=== PATIENT | male | born 1940 | race Caucasian/White ===

== ENCOUNTER 2019-05-30 04:45 | Inpatient (IN) ==
--- NOTE | 2019-05-15 23:15 | PAT Medication Instructions ---
Medication Instructions Date of Service May 15, 2019 Home Medications allopurinol 300 mg PO QAM furosemide 20 mg PO QAM lisinopril 2.5 mg PO QAM omeprazole 20 mg PO BID red yeast rice 600 mg PO QAM STOP taking 2 weeks before surgery If surgery is within 2 weeks, stop taking as soon as possible. red yeast rice 600 mg PO QAM DO NOT take the morning of surgery furosemide 20 mg PO QAM lisinopril 2.5 mg PO QAM Take morning of surgery With a small sip of water, OTHERWISE NOTHING TO EAT OR DRINK AFTER MIDNIGHT: allopurinol 300 mg PO QAM omeprazole 20 mg PO BID Take evening before surgery omeprazole 20 mg PO BID Other Notes If you have any questions please call us at [phone] or [phone] or [phone] or [phone]
--- NOTE | 2019-05-16 13:42 | Anesthesiology Consultation ---
Date of Service May 16, 2019 Assessment & Plan (1) Encounter for pre-operative examination: Mild , most recent echo 2013. Will attempt to update prior to surgery; if unable to do so, patient will need general anesthesia. Surgeon's office made aware. Patient with several cardiac issues, noncompliant with medications. Will need cardiac clearance prior to surgery. Surgeon's office made aware. Chart Review Chart Review: Pending: Refer to Additional Notes / Consult section and Patient seen in Pre Admission Testing Teaching & Discussion Instructed NPO after midnight before surgery, except medications with 15 cc of water. Medication instructions provided according to the PAT guidelines. History Surgery Operation Date: 05/21/19 08:40 Proposed Procedures p Left Knee Total Knee Arthroplasty - Pito Perez MD Height/Weight Height: 5 ft 10 in Weight: 80.5 kg Allergies Allergy/AdvReac Type Severity Reaction Status Date / Time simvastatin AdvReac Mild JOINT Verified 05/15/19 14:47 STIFFNESS Medications Home Medications Medication Instructions Recorded Confirmed Last Taken allopurinol 300 mg PO QAM 05/15/19 05/15/19 Unknown furosemide 20 mg PO QAM 05/15/19 05/15/19 Unknown lisinopril 2.5 mg PO QAM 05/15/19 05/15/19 Unknown omeprazole 20 mg PO BID 05/15/19 05/15/19 Unknown red yeast rice 600 mg PO QAM 05/15/19 05/15/19 Unknown Past Medical History Medical History Afib Longstanding history. Previously on Coumadin but self-discontinued and has refused any further anticoagulation. CAD (coronary artery disease) Stent to RCA 2005; pt had chest pain and inconclusive stress test --> cath. No longer follows with cardiology, refuses statin and ASA. CKD (chronic kidney disease) stage 3, GFR 30-59 ml/min GERD (gastroesophageal reflux disease) Gout History of DVT (deep vein thrombosis) 1970s Hyperlipidemia Hypertension Osteoarthritis Exercise / Class Metabolic Activity 1 > 8 Run/Swim/Ski/Tennis (Does 1 FOS a few times per week, teaches martial arts, swims at [employer] 50-60 laps) Past Family History Family History Mother FHx: colon cancer Past Surgical History Surgical History History of cardiac cath Stent to RCA 2005. History of cataract surgery bilateral History of colonoscopy History of esophagogastroduodenoscopy (EGD) History of heart artery stent RCA (10/30/2005) [facility] History of tonsillectomy History of umbilical hernia repair Hx of vasectomy S/P left knee arthroscopy Past Anesthesia History No Hx of Anesthesia Complications and No Family Hx of Anesthesia Complications History of PONV No Hx of PONV and No Hx of Motion Sickness Social History Smoking Status: Former smoker tobacco type: cigarettes Smoking cigarettes per day: 1ppd + x 23 years Do You Dip or Chew Tobacco: No Smoking End Date: 1971 Hx Alcohol Use: Yes Alcohol type: beer alcohol intake frequency: a few times a week Hx Substance Use: No substance use type: does not use Review of Systems Pt denies any recent chest pain, shortness of breath, palpitations, cough, fever or URI. Physical Exam Vital Signs BP: 138/79 P: 77bpm SPO2: 97% RA T: 97.9 F R: 16 ENMT Mouth: + dentures and + edentulous Thyromental Distance: < 3.5 Finger Breadths (3) Mallampati Class: II Neck normal visual inspection; neck extension not limited Respiratory normal respiratory effort Auscultation: lungs clear to auscultation bilaterally Cardiovascular Rate/Rhythm: regular rate; + abnormal rhythm (irreg irreg) Heart Sounds: no murmur Vessels: no carotid bruit Extremities: no edema Testing Echocardiogram Date: 11/19/13 EF: 57% Moderate concentric LVH. LV wall motion is normal. RV systolic function is normal. Left atrium is moderately enlarged. Left atrial pressure is elevated by Doppler exam. Aortic valve is mildly calcified with mild aortic valve stenosis. BELLE 1.4 cm. Aortic valve mean gradient 8.4 mmHg. Mild mitral regurgitation and mild tricuspid regurgitation are present. Estimated RVSP is 25 mmHg. Stress Test Date: 06/22/17 Type: nuclear Resting EF: 43% This was a walking pharmaceutical study. Lexiscan nuclear cardiac stress test negative for ischemia. Small to medium size defect of mild to moderate intensity present involving apex and apical lateral and mid inferolateral segments. The defect is probably an attenuation artifact. TID normal at 1.05. Left ventricle is mildly diffusely hypokinetic. LVEF is 43% and post Lexiscan study.
--- NOTE | 2019-05-16 14:29 | XRay Report ---
XR chest Pre-admission PA/Lat CLINICAL HISTORY: Preoperative evaluation. COMPARISON STUDY: No previous studies for comparison. FINDINGS: Lung volumes are normal. Lungs are clear. There is no pneumothorax or pleural effusion. Car diac size is normal. Mediastinal contours are normal. There is no evidence for pulmonary edema. A nod ular density along the left heart border likely reflects a nipple shadow. IMPRESSION: No acute cardiopulmonary findings. ACT 112: Negative or not required by law. Electronically signed by: Dean Valdez M.D. 05/16/2019 2:28 PM
[2019-05-16 15:54] LABS: Appearance Urine Clear (Clear); Bilirubin Urine Negative (Negative); Blood Urine Negative (Negative); Color Urine Yellow; Glucose Urine UA Negative (Negative); Ketones Urine Negative (Negative); Leukocyte Esterase Urine Negative (Negative); Nitrite Urine Negative (Negative); Protein Urine Negative (Negative); Specific Gravity Urine 1.018 (1.000-1.030); Urobilinogen Urine Negative (Negative); pH Urine 5.5 (4.5-7.5)
[2019-05-16 15:56] LABS: Basophils # (auto) 0.01 K/uL (0-0.2); Basophils % (auto) 0.1 %; Eosinophils # (auto) 0.03 K/uL (0-0.5); Eosinophils % (auto) 0.4 %; Hemoglobin 14.1 g/dL (14.0-18.0); Immature Granulocytes # (auto) 0.04 K/uL (0.00-0.02); Immature Granulocytes % (auto) 0.6 %; Lymphocytes % (auto) 37.1 %; Mean Corpuscular Hemoglobin 31.1 pg (25-34); Mean Corpuscular Hgb Conc 32.8 g/dL (32-36); Mean Corpuscular Volume 94.9 fL (80-100); Mean Platelet Volume 12.4 fL (7.4-10.4); Monocytes % (auto) 12.9 %; Neutrophils # (auto) 3.42 K/uL (1.4-6.5); Neutrophils % (auto) 48.9 %; Platelet Count 209 K/uL (130-400); RDW Standard Deviation 51.6 fL (36.4-46.3); Red Blood Count 4.53 M/uL (4.7-6.1)
[2019-05-16 15:58] LABS: Albumin Level 3.7 gm/dl (3.4-5.0); Calcium 9.2 mg/dl (8.5-10.1); Creatinine Clr Calc Pharmacy 57.9 ml/min; Est GFR (African American) 77.3; Est GFR (Non-African American) 66.7; Potassium 4.1 mmol/L (3.5-5.1)
[2019-05-16 16:04] LABS: Partial Thromboplastin Ratio 0.9; Partial Thromboplastin Time 25.5 Seconds (21.0-31.0); Prothrombin Time 10.4 Seconds (9.0-12.0)
[2019-05-17 06:10] LABS: Estimated Average Glucose 111 mg/dl; Hemoglobin A1C 5.5 % (4.5-5.6)
--- NOTE | 2019-05-17 07:48 | Electrocardiogram Report ---
Test Reason : Blood Pressure : / mmHG Vent. Rate : 079 BPM Atrial Rate : 086 BPM P-R Int : 000 ms QRS Dur : 134 ms QT Int : 426 ms P-R-T Axes : 000 -30 024 degrees QTc Int : 488 ms probably Atrial fibrillation Left axis deviation Right bundle branch block Abnormal ECG No previous ECGs available Confirmed by Wilberto Johnson ([id number]) on 05/17/2019 7:48:11 AM Referred By: Pito Perez Confirmed By:Michoacano Johnson
--- NOTE | 2019-05-29 17:56 | History and Physical Report ---
DATE OF ADMISSION: 05/30/2019 CHIEF COMPLAINT: Chronic left knee pain. HISTORY OF PRESENT ILLNESS: This is an 79-year-old male patient of Dr. Perez'ginny complaining of chronic left knee pain, longstanding, now progressively getting worse. The patient has failed conservative treatment including intra-articular injections, anti-inflammatories and the use of a brace. The patient has increased pain with weightbearing activities and his pain does interfere with his activities of daily living. The patient has been diagnosed with end-stage osteoarthritis per clinical and radiographic exams and wishes to proceed with a left total knee arthroplasty. PAST MEDICAL HISTORY: Coronary artery disease status post heart stent placement in 2004, osteoarthritis, acid reflux, BPH. SOCIAL HISTORY: Nonsmoker. He is a social drinker. FAMILY HISTORY: Noncontributory. REVIEW OF SYSTEMS: Chronic left knee pain, otherwise denies any shortness of breath, chest pain, nausea, vomiting or any other joint complaints. PAST SURGICAL HISTORY: Heart stent x2, tonsillectomy, hernia repair and left knee arthroscopy. MEDICATIONS: Omeprazole 20 mg daily, aspirin 325 mg daily, Lasix 20 mg daily, Lisinopril 2.5 mg daily, allopurinol 300 mg daily, red yeast rice 600 mg daily. ALLERGIES: SIMVASTATIN. PHYSICAL EXAMINATION: GENERAL: Well-developed, well-nourished 79-year-old male in no acute distress. He is alert and oriented x3 and pleasant. HEENT: Normocephalic, atraumatic. Extraocular motions are intact. Pupils are equal and reactive to light. HEART: Irregular rate and rhythm with possible atrial fibrillation. He will be worked up at the hospital preoperatively. LUNGS: Clear. ABDOMEN: Soft, nontender, bowel sounds present. EXTREMITIES: Left knee limited range of motion of 0-120. He has a varus deformity with medial joint line tenderness. He has crepitation and pain with passive range of motion, 5/5 strength. Neurologically and neurovascularly he is intact in his left lower extremity. DIAGNOSES: Left knee end-stage osteoarthritis, coronary artery disease status post stent placement in 2004, osteoarthritis, acid reflux, and benign prostatic hypertrophy. PLAN: The patient was advised of his diagnosis. Indications, risks, benefits, postop course have all been reviewed. The patient wished to proceed with a left total knee arthroplasty. Necessary consent forms, preoperative testing and clearances will be obtained.
[2019-05-30] MEDS ORDERED: dexAMETHasone 4 MG TAB PO SCH (06:00)
[2019-05-30] MEDS ORDERED: METOCLOPRAMIDE HCL 10 MG TABLET PO SCH (06:00)
[2019-05-30] MEDS ORDERED: CEFAZOLIN 2000MG 2,000 MG/15 ML SYR IV SCH (06:00)
[2019-05-30] MEDS ORDERED: FAMOTIDINE 20 MG TAB PO SCH (06:00)
[2019-05-30] MEDS ORDERED: ROPIVACAINE 0.5% HCL/PF 150 MG, BUPIVACAINE 0.5% MPF 30 ML, EPINEPHrine 30MG/30ML (OR U... INSTIL SCH (06:00)
[2019-05-30] MEDS ORDERED: LR 15ML/HR IV SCH (06:00)
[2019-05-30] MEDS ORDERED: GABAPENTIN 300 MG CAP PO SCH (06:00)
[2019-05-30] MEDS ORDERED: CeleBREX 200 MG CAP PO SCH (06:00)
[2019-05-30] MEDS ORDERED: ACETAMINOPHEN 500 MG TAB PO SCH (06:00)
[2019-05-30] MEDS ORDERED: ONDANSETRON INJ 2 MG/ML 2 ML VIAL ONE (06:22)
[2019-05-30] MEDS ORDERED: MIDAZOLAM HCL 1 MG/ML 2ML VIAL ONE (06:22)
[2019-05-30] MEDS ORDERED: DEXAMETHASONE SOD INJ 4 MG/ML VIAL ONE (06:22)
[2019-05-30] MEDS ORDERED: KETAMINE HCL INJ 50 MG/ML 10 ML VIAL ONE (06:22)
[2019-05-30] MEDS ORDERED: PROPOFOL IV EMULSION 10 MG/ML 20 ML VIAL IV ONE (06:22)
[2019-05-30] MEDS ORDERED: LIDOCAINE HCL 2% 2 ML VIAL/AMP(20MG/ML) INFIL ONE (06:22)
[2019-05-30] MEDS ORDERED: GLYCOPYRROLATE 0.2 MG/ML VIAL ONE (06:22)
[2019-05-30] MEDS ORDERED: EPINEPHrine INJ 1 MG/ML AMP ONE (06:24)
[2019-05-30] MEDS ORDERED: ROPIVACAINE 0.5% 5 MG/ML 30 ML VIAL ONE (06:24)
[2019-05-30] MEDS ORDERED: BUPIVACAINE 0.5 % 5 MG/1 ML PF 10ML VIAL ONE (06:24)
[2019-05-30] MEDS ORDERED: BACITRACIN INJ 50,000 UNIT VIAL ONE (07:13)
[2019-05-30] MEDS ORDERED: ORTHO JOINT ANESTHETIC ONE (07:13)
--- NOTE | 2019-05-30 07:14 | History & Physical Bridge Note ---
Date of Service May 30, 2019 History & Physical Bridge Note I have examined the patient, reviewed the History & Physical and in the interval since the performance of the History & Physical I have noted the following changes of clinical significance: no changes noted
[2019-05-30] MEDS ORDERED: ATROPINE SULFATE 0.1 MG/ML 10ML SYR IV PRN (07:31)
[2019-05-30] MEDS ORDERED: ePHEDrine sulfate 50 MG/ML AMP IV PRN (07:31)
[2019-05-30] MEDS ORDERED: fentaNYL citrate 100 MCG/2 ML VIAL IV PRN (07:31)
[2019-05-30] MEDS ORDERED: LABETALOL HCL IV 5 MG/ML 20ML IV PRN (07:31)
[2019-05-30] MEDS ORDERED: PHENYLEPHRINE 100MCG/ML 5ML SYR IV PRN (07:31)
[2019-05-30] MEDS ORDERED: ONDANSETRON INJ 2 MG/ML 2 ML VIAL IV PRN ×2 (07:31→10:40)
--- NOTE | 2019-05-30 09:15 | Operative Report ---
Post Operative Report Pre & Post Diagnosis Operation Date: 05/21/19 08:40 <No data on this case meets the specified criteria> Operation Date: 05/30/19 07:15 Pre-Op Diagnosis: Osteoarthritis Left Knee Post-Op Diagnosis: Osteoarthritis Left Knee I identified the patient and participated in the time-out.: Yes Procedure Operation Date: 05/21/19 08:40 <No data on this case meets the specified criteria> Operation Date: 05/30/19 07:15 Actual Procedures p Left Total Knee Arthroplasty(Left) - Pito Perez MD Surgeon Pito Perez MD Data Center Architect Aaron CONNELL Estimated Blood Loss 5 Findings Consistent with Post-Op Diagnosis Specimens Bone cuts Drains 2 Hemovac Anesthesia Type MAC Spinal Regional Complications none Disposition Accompanied Patient To Recovery: No Disposition: Recovery Room Indications 79-year-old male with progressive osteoarthritis in his left knee [id number] the lateral compartment with mild valgus alignment to his knee and mild to moderate patellofemoral OA Description of Procedure Patient taken to the operating room placed supine on the operating table and anesthetized under spinal MAC regional anesthesia. Exam under anesthesia demonstrated good range of motion mild valgus alignment to the knee some mild MCL laxity. A pneumatic tourniquet was placed about the thigh of the left lower extremity. The left lower extremity was prepped and draped in usual fashion. Leg was elevated exsanguinated with an Esmarch bandage and the pneumatic was raised to 300 mm mercury. An anterior incision was made across the left knee. The skin was incised longitudinally subcutaneous flaps were elevated and an incision was made through the medial retinaculum extending up into the mid third of the quadriceps tendon and extended down to the medial tibial tubercle. Intra-articular findings demonstrated primarily lateral compartment OA with posterior lateral bone loss and some hypoplastic lateral femoral condyle. Chronic degenerative lateral meniscus tear. Intact cruciate ligaments. Mild patellofemoral OA only normal medial compartment. The knee was exposed by excising the infrapatellar fat pad, excising the meniscal remnants and anterior cruciate ligament. Any inflamed synovial tissue was resected. The fat pad over the anterior femur was resected for placement of the component in that area. The lateral synovial bands were release. Appropriate releases were performed to balance ligaments. This required some release of the upper IT band and subperiosteal lateral posterior lateral release and no releases medially. The femur was exposed. The intramedullary guide was placed into the knee and the distal cut was made with a standard cut at 6 degree valgus. Sizing guide was placed and the drill holes were placed in approximately 3 degrees of external rotation to match the intercondylar axis. The size 8 ,4-in-1 cutting block was placed. The anterior and posterior chamfer cuts were made. The knee was extended and a subperiosteal peel lateral release was performed around the patella. The patella width was measured and width was reproduced using freehand cut technique. The 35 x 9 millimeter symmetrical patella was used. 3 drill holes are made for the pegs. The tibia was exposed. An external tibial cutting guide was adjusted to make a perpendicular cut to the long axis of the tibia matching the posterior slope. Cutting guide was placed and the proximal cut was made with the oscillating saw. All osteophytes were resected. The lamina ornamental bronze worker was used to assess ligamentous balance and the ligaments were balanced in extension and flexion. The tibia was reexposed and measured for a size F tibial component. This was externally rotated in line with the tibial tubercle and the fixation pins were drilled. The proximal tibia was fashioned with the drill and punch. The size 8 CR femoral trial was inserted. The trial MC inserts were used. The 11 mm insert gave balanced ligaments through full range of motion. The patella tracked centrally. the trials were removed. The ortho mix anesthetic cocktail was injected per protocol. The knee was then copiously irrigated with pulsatile lavage antibiotic solution with bacitracin. The final components were cemented with Simplex cement. The final components were [employer] persona left CR size 8 femoral component, F tibial component, 11 mm MC polyethylene tibial insert, 35 x 9 patella. While the cement cured with the knee in full extension the Betadine soak was used per protocol. After the cement cured, the knee joint was copiously irrigated with antibiotic solution with bacitracin. 2 drains were brought out laterally and connected to a Hemovac. The quadriceps tendon and medial retinaculum were closed with interrupted [id number] #1 Vicryl sutures. The knee was taken through a full range of motion and repair was secure. The subcutaneous tissues were closed with 2-0 Vicryl sutures and skin was closed with cachorro. Sterile dressings were applied and the patient tolerated the procedure well. Aaron CONNELL my physician lead recreation assistant, assisted in soft tissue retraction instrument management leg positioning the closure and will participate in the postoperative care of the patient. I attest to the content of the Intraoperative Record and any orders documented therein. Any exceptions are noted below.
--- NOTE | 2019-05-30 10:02 | XRay Report ---
TWO VIEWS LEFT KNEE CLINICAL HISTORY: Postoperative examination. FINDINGS: AP and crosstable lateral portable views of the left knee are obtained. A left knee arthrop lasty is in near anatomic alignment. There has been undersurface remodeling of the patella. No acute fracture is seen. There are expected postoperative changes around the knee including skin clips, a medina rgical drain, soft tissue edema, and subcutaneous gas. IMPRESSION: Expected postoperative changes status post left knee arthroplasty. No acute fracture is s een. ACT 112: Negative or not required by law. Electronically signed by: Jacinto Mackenzie M.D. 05/30/2019 10:01 AM
--- NOTE | 2019-05-30 10:15 | Anesthesiology Progress Note ---
Date of Service May 30, 2019 Anesthesia Post Procedure Vital Signs Vital Signs: Temp Pulse Pulse Resp BP BP Pulse Ox 05/30/19 10:05 36.9 C 69 15 108/62 97 05/30/19 09:55 67 15 93/63 L 98 05/30/19 09:45 78 14 96/59 L 100 05/30/19 09:35 78 17 104/62 97 05/30/19 09:28 36.6 C 82 12 73/47 L 73/47 L 96 05/30/19 05:27 36.8 C 83 18 160/95 H 97 Transfer of Care Handoff Completed per policy Notes Mental Status: alert / awake / arousable Patient Amnestic to Procedure: Yes Nausea / Vomiting: adequately controlled Pain: adequately controlled Airway Patency, RR, SpO2: stable & adequate BP & HR: stable & adequate Hydration State: stable & adequate Anesthetic Complications: no major complications apparent and Pt Satisfied with anesthetic care
[2019-05-30] MEDS: SODIUM CHLORIDE 0.9% 1000ML 1,000 ML IV SCH ×2 (10:30→20:04)
[2019-05-30] MEDS ORDERED: NALOXONE HCL 0.4 MG/1 ML VIAL/CARP IV PRN (10:40)
[2019-05-30] MEDS ORDERED: OXYCODONE HCL IR 5 MG TAB (IMMEDIATE RELEASE) PO PRN (10:40)
[2019-05-30] MEDS ORDERED: HYDROmorphone INJ 0.5 MG/0.5 ML SYR IV PRN (10:40)
[2019-05-30] MEDS ORDERED: bisacodyL 10 MG SUPP PR PRN (10:40)
[2019-05-30] MEDS ORDERED: MAGNESIUM HYDROXIDE SUSP 30 ML UDC PO PRN (10:40)
[2019-05-30] MEDS ORDERED: PHENYLEPHRINE 100MCG/ML 5ML SYR ONE (10:43)
--- NOTE | 2019-05-30 10:56 | Anesthesiology Progress Note ---
Date of Service May 30, 2019 Anesthesia Post Procedure Vital Signs Vital Signs: Temp Pulse Pulse Pulse Resp BP BP 05/30/19 10:30 36.4 C L 74 16 102/66 05/30/19 10:15 36.9 C 69 16 94/62 L 05/30/19 10:05 36.9 C 69 15 108/62 05/30/19 09:55 67 15 93/63 L 05/30/19 09:45 78 14 96/59 L 05/30/19 09:35 78 17 104/62 05/30/19 09:28 36.6 C 82 12 73/47 L 73/47 L 05/30/19 05:27 36.8 C 83 18 160/95 H Pulse Ox 05/30/19 10:30 98 05/30/19 10:15 99 05/30/19 10:05 97 05/30/19 09:55 98 05/30/19 09:45 100 05/30/19 09:35 97 05/30/19 09:28 96 05/30/19 05:27 97 Transfer of Care Handoff Completed per policy Notes Mental Status: alert / awake / arousable Patient Amnestic to Procedure: Yes Nausea / Vomiting: adequately controlled Pain: adequately controlled Airway Patency, RR, SpO2: stable & adequate BP & HR: stable & adequate Hydration State: stable & adequate Neuraxial Anesthesia: was administered and sensory block is resolving Anesthetic Complications: no major complications apparent and Pt Satisfied with anesthetic care
--- NOTE | 2019-05-30 11:49 | Consultation ---
Date of Consultation May 30, 2019 Assessment & Plan (1) S/P total knee arthroplasty: Post op day# 0 S/P L TKA by Dr Perez EBL #5ml Post op doing well -pain management per ortho -wound management per ortho -PT/OT as appropriate -DVT prophylaxis per ortho -incentive spirometry -monitor H&H for acute blood loss anemia; pre-op Hgb: 14 (2) Chronic atrial fibrillation: Chronic A-fib. Prior use Coumadin. Dr Millan cardiology recommends starti ng Eliquis after surgery Rate controlled -Eliquis to start tomorrow per ortho -Not on rate control medication (3) CAD (coronary artery disease): S/P Stent in 2005 -Not on aspirin, statin as pt refuses (4) Hypertension: Stable -Hold lisinopril, furosemide and reassess tomorrow morning (5) CKD (chronic kidney disease) stage 3, GFR 30-59 ml/min: Pre-op Cr: 1.0 with GFR: 66 -Monitor renal functions -Avoid nephrotoxic agents when possible (6) GERD (gastroesophageal reflux disease): -Continue PPI (7) Gout: -Continue allopurinol DVT Prophylaxis -SCDs per ortho Disposition per primary service Follows with Dr Hernández for routine care Pt was seen and care coordinated with Dr Rodríguez. See addendum Pt will be followed by Dr Mendez starting 05/31/19 Thank you for this consultation. We will follow the patient with you during their hospital stay. You can reach a member of the [facility] Hospitalist Team 04/12 via pager @ [phone]. Supervising Physician Co-Signing Physician Notes Attending addendum: The patient was seen and examined in medical floor He is a status post left total knee arthroplasty, POD #0 He denies any significant symptoms Denies any chest pain, palpitation, shortness of breath, abdomen pain, nausea and/or vomiting. On examination Lying in bed comfortably Hemodynamically stable Chest-clear to auscultate bilaterally Heart-S1-S2, regular Abdomen-benign Extremities-negative His labs, imaging studies, and review of his studies reviewed Has chronic atrial fibrillation, CAD status post coronary stenting 2005 , hypertension and CKD Remained stable medically Agree with assessment and plan as outlined above by JASSI Salazar Dr History of Present Illness Requesting Physician: Dr Perez Reason for Consultation: Post op medical management Attending Physician: Pito Perez MD History of Present Illness Pt is 79 y/o M with PMH CAD s/p stents, chronic A- fib, HTN, dyslipidemia, CKD III, PVD, GERD, gout seen in medical consultation s/p L TKA today by Dr Perez. Post op pt reports feeling well. Still with some leg numbness, able to move bilateral feet. Last BM on 05/29/19. Denies fever/chills, diaphoresis, N/V/D, HUGHES, dizziness, syncope, vision changes, neck pain, CP, SOB, orthopnea, palpitations, cough, sore throat, choking, otalgia, rhinorrhea, abdominal pain, paresthesias, extremity edema, rashes, urinary symptoms. Allergies Allergy/AdvReac Type Severity Reaction Status Date / Time simvastatin AdvReac Mild JOINT Verified 05/30/19 05:24 STIFFNESS Home Medications Home Medications Medication Instructions Recorded Confirmed Type allopurinol 300 mg PO QAM 05/15/19 05/30/19 History furosemide 20 mg PO QAM 05/15/19 05/30/19 History lisinopril 2.5 mg PO QAM 05/15/19 05/30/19 History omeprazole 20 mg PO BID 05/15/19 05/30/19 History red yeast rice 600 mg PO QAM 05/15/19 05/30/19 History apixaban [Eliquis] 5 mg PO BID 05/30/19 05/30/19 History Patient History Medical History Afib Longstanding history. Previously on Coumadin but self-discontinued and has refused any further anticoagulation. CAD (coronary artery disease) Stent to RCA 2005; pt had chest pain and inconclusive stress test --> cath. No longer follows with cardiology, refuses statin and ASA. CKD (chronic kidney disease) stage 3, GFR 30-59 ml/min GERD (gastroesophageal reflux disease) Gout History of DVT (deep vein thrombosis) 1970s Hyperlipidemia Hypertension Osteoarthritis Surgical History History of cardiac cath Stent to RCA 2005. History of cataract surgery bilateral History of colonoscopy History of esophagogastroduodenoscopy (EGD) History of heart artery stent RCA (10/30/2005) [facility] History of tonsillectomy History of umbilical hernia repair Hx of vasectomy S/P left knee arthroscopy Family History Mother FHx: colon cancer Social History Preferred Language: Turkmen Communication Ability: Effective Appeals Referee Required: No Beliefs That Will Affect Care: None Current Living Situation: Spouse Other Information That Helps Us Care for You: No Feels Safe at Home: Yes Safety Concerns: Feels Safe At This Time Smoking Status: Former smoker Tobacco Type: cigarettes ; Cigarettes Per Day: 1ppd + x 23 years ; Do You Dip or Chew Tobacco: No ; Smoking End Date: 1971 ; Second Hand Exposure: Yes (hx) ; Tobacco Cessation Education Requested by Patient: No Hx Alcohol Use: Yes (2-3 drinks twice a week) Alcohol type: beer Hx Substance Use: No Review of Systems Review of Systems: All systems reviewed & are unremarkable except as noted in HPI & below Physical Exam Physical Exam: General: no distress, WDWN Head: normocephalic, atraumatic Eyes: conjunctiva non-injected, anicteric ENT: normal inspection external ears, nose, mucous membranes moist Neck: supple, trachea midline Lungs: clear, no respiratory distress, no wheezing/rhonchi/rales CV: irregularly irregular, rate 76, no murmur, no pretibial edema Abd: normal BS, soft, non-tender Ext: no cyanosis, no calf tenderness; LLE with surgical dressing and NATE wrap in place, LIBRA drain in place with serosanguineous drainage, bilateral pedal pulls and pushes intact, distal pulses intact Neuro: A&O x 3, no focal deficits noted, normal affect Skin: warm, dry Results & Data Vital Signs (Past 12 Hours) Vital Signs Temp Pulse Pulse Pulse Resp BP BP 05/30/19 11:29 77 16 117/73 05/30/19 10:56 73 16 115/71 05/30/19 10:30 36.4 C L 74 16 102/66 05/30/19 10:15 36.9 C 69 16 94/62 L 05/30/19 10:05 36.9 C 69 15 108/62 05/30/19 09:55 67 15 93/63 L 05/30/19 09:45 78 14 96/59 L 05/30/19 09:35 78 17 104/62 05/30/19 09:28 36.6 C 82 12 73/47 L 73/47 L 05/30/19 05:27 36.8 C 83 18 160/95 H Pulse Ox 05/30/19 11:29 98 05/30/19 10:56 99 05/30/19 10:30 98 05/30/19 10:15 99 05/30/19 10:05 97 05/30/19 09:55 98 05/30/19 09:45 100 05/30/19 09:35 97 05/30/19 09:28 96 05/30/19 05:27 97
[2019-05-30] MEDS: ACETAMINOPHEN 500 MG TAB PO SCH ×2 (13:09→22:03)
[2019-05-30] MEDS: CEFAZOLIN 2000MG 2,000 MG/15 ML SYR IV SCH (15:17)
[2019-05-30] MEDS: FERROUS GLUCONATE 324 MG TAB PO SCH (17:52)
[2019-05-30] MEDS: PANTOprazole 40 MG TAB PO SCH (20:01)
[2019-05-30] MEDS: DOCUSATE SODIUM 100 MG CAP PO SCH (20:01)
[2019-05-30] MEDS: SENNA 8.6 MG TAB PO SCH (20:02)
[2019-05-30] MEDS ORDERED: ASPIRIN 325 MG ECTAB PO SCH (21:00)
[2019-05-31] MEDS: CEFAZOLIN 2000MG 2,000 MG/15 ML SYR IV SCH (00:07)
[2019-05-31] MEDS: ACETAMINOPHEN 500 MG TAB PO SCH ×3 (05:33→22:48)
[2019-05-31 06:43] LABS: Hematocrit (blood only) 34.2 % (42-52); Hemoglobin 11.4 g/dL (14.0-18.0); Mean Corpuscular Hemoglobin 30.7 pg (25-34); Mean Corpuscular Hgb Conc 33.3 g/dL (32-36); Mean Corpuscular Volume 92.2 fL (80-100); Mean Platelet Volume 11.2 fL (7.4-10.4); Platelet Count 182 K/uL (130-400); RDW Coefficient of Variation 14.6 % (11.5-14.5); RDW Standard Deviation 48.9 fL (36.4-46.3); Red Blood Count 3.71 M/uL (4.7-6.1)
[2019-05-31 07:19] LABS: BUN Creatinine Ratio 16.6 (10-20); Calcium 8.6 mg/dl (8.5-10.1); Creatinine Clr Calc Pharmacy 49.9 ml/min; Est GFR (African American) 64.5; Est GFR (Non-African American) 55.6; Potassium 4.2 mmol/L (3.5-5.1)
--- NOTE | 2019-05-31 07:35 | Orthopedic Progress Note ---
Date of Service May 31, 2019 Assessment & Plan (1) S/P total knee arthroplasty: POD #1, Left TKA PT/ OT DVT proph- Eliquis D/C planning- O [facility] As per medicine. Subjective POD #1, Doing well. Pain controlled well. Denies SOB, CP, N/V. Wishes [facility] on discharge. Results & Data Vital Signs (Past 12 Hours) Vital Signs Temp Pulse Resp BP Pulse Ox 05/31/19 04:00 36.7 C 79 18 129/73 95 05/30/19 23:20 36.5 C 75 16 118/67 96 05/30/19 20:15 36.5 C 69 17 116/68 99
[2019-05-31] MEDS: FERROUS GLUCONATE 324 MG TAB PO SCH ×2 (08:30→17:41)
[2019-05-31] MEDS: PANTOprazole 40 MG TAB PO SCH ×2 (08:30→20:37)
[2019-05-31] MEDS: DOCUSATE SODIUM 100 MG CAP PO SCH ×2 (08:30→20:38)
[2019-05-31] MEDS: APIXABAN 5 MG TABLET PO SCH ×2 (08:30→20:37)
[2019-05-31] MEDS: allopurinoL 300 MG TAB PO SCH (08:30)
[2019-05-31] MEDS: MULTIVITAMIN TAB PO SCH (08:30)
--- NOTE | 2019-05-31 11:55 | Hospitalist Progress Note ---
Date of Service May 31, 2019 Assessment & Plan (1) Postoperative state: Postop day 1 status post left TKA by Dr. Perez (2) S/P total knee arthroplasty: Postop day 1 status post left TKA by Dr. Perez -pain management per ortho -wound management per ortho -PT/OT as appropriate -DVT prophylaxis per ortho -incentive spirometry -monitor H&H for acute blood loss anemia (3) Chronic atrial fibrillation: Rate is controlled, patient has started Eliquis twice daily. (4) CAD (coronary artery disease): Chronic, stable status post stent in 2005. Continue medical management. Patient has an allergy to statins. (5) Hypertension: Continue lisinopril, furosemide set to restart tomorrow morning. BP is controlled. (6) CKD (chronic kidney disease) stage 3, GFR 30-59 ml/min: Chronic, stable, at baseline. Avoid nephrotoxic substances as able. (7) GERD (gastroesophageal reflux disease): -Continue PPI per home regimen (8) Gout: Continue allopurinol per home regimen. (9) DVT prophylaxis: Eliquis Full code Disposition-Per PT/OT recommendations. Thank you for this consultation. Denise Mendez DO [facility] Hospitalist Subjective Tolerating p.o., afebrile, pain is well controlled. Review of Systems Review of Systems: All systems reviewed & are unremarkable except as noted in HPI & below Physical Exam Physical Exam: CONSTITUTIONAL: WNWD, vitals as above, generally well- appearing EYES: normal conjunctivae, no scleral icterus ENT: MMM RESPIRATORY: clear to auscultation bilaterally, no crackles, rales or wheezes, normal respiratory effort CARDIOVASCULAR: regular rate and rhythm, S1 and 2 heard without murmurs, gallops or rubs, no JVD, no peripheral edema GASTROINTESTINAL: soft, nontender,nondistended MUSCULOSKELETAL: Left knee with splint in place. Limited range of motion. Moving other extremities with ease SKIN: warm and dry, surgical incision was not evaluated secondary to splint. NEUROLOGIC: CN II through XII grossly intact, normal cognition, normal speech, no gross focal deficits. PSYCHIATRIC: alert cooperative and oriented to person, place and time Euthymic mood, makes good eye contact, language grossly intact, recent and remote memory grossly intact. LYMPHATIC: no LAD Results & Data Vital Signs (Past 12 Hours) Vital Signs Temp Pulse Pulse Resp BP Pulse Ox 05/31/19 11:38 36.6 C 82 16 118/82 99 05/31/19 07:56 36.6 C 80 16 126/78 96 05/31/19 04:00 36.7 C 79 18 129/73 95 Laboratory Results Short CBC 05/31/19 Range/Units 06:28 WBC 14.90 H (4.8-10.8) K/uL Hgb 11.4 L (14.0-18.0) g/dL Hct 34.2 L (42-52) % Plt Count 182 (130-400) K/uL BMP 05/31/19 06:28 Sodium 137 Potassium 4.2 Chloride 105 Carbon Dioxide 28 BUN 20 H Creatinine 1.22 Glucose 120 H Calcium 8.6 Medications Administered Current Inpatient Medications Acetaminophen (Tylenol) 1,000 mg PO Q8 [facility] Stop: 06/29/19 13:59 Last Admin: 05/31/19 05:33 Dose: 1,000 mg Documented by: Allopurinol (Zyloprim) 300 mg PO QAM [facility] Stop: 06/30/19 08:59 Last Admin: 05/31/19 08:30 Dose: 300 mg Documented by: Apixaban (Eliquis) 5 mg PO BID [facility] Stop: 06/30/19 08:59 Last Admin: 05/31/19 08:30 Dose: 5 mg Documented by: Bisacodyl (Dulcolax) 10 mg [place] DAILY PRN PRN Reason: Constipation Stop: 06/29/19 10:39 Docusate Sodium (Colace) 100 mg PO BID [facility] Stop: 06/29/19 20:59 Last Admin: 05/31/19 08:30 Dose: 100 mg Documented by: Ferrous Gluconate (Ferrous Gluconate) 324 mg PO BIDM [facility] Stop: 06/29/19 16:59 Last Admin: 05/31/19 08:30 Dose: 324 mg Documented by: Hydromorphone HCl (Dilaudid) 0.5 mg IV Q4H PRN PRN Reason: Pain Stop: 06/13/19 10:39 Lisinopril (Zestril) 2.5 mg PO QAM [facility] Stop: 06/30/19 08:59 Magnesium Hydroxide (Milk Of Magnesia) 30 ml PO Q6H PRN PRN Reason: Constipation Stop: 06/29/19 10:39 Multivitamins (Multivitamin Tab) 1 tab PO QAM [facility] Stop: 06/30/19 08:59 Last Admin: 05/31/19 08:30 Dose: 1 tab Documented by: Naloxone HCl (Narcan) 0.1 mg IV Q5M PRN PRN Reason: Oversedation/Resp Depression Stop: 06/29/19 10:39 Ondansetron HCl (Zofran) 4 mg IV Q6H PRN PRN Reason: Nausea And Vomiting Stop: 06/29/19 10:39 Oxycodone HCl (Roxicodone Immediate Rel) 5 - 10 mg PO Q4H PRN PRN Reason: Pain Stop: 06/13/19 10:39 Pantoprazole Sodium (Protonix) 40 mg PO BID [facility] Stop: 06/29/19 20:59 Last Admin: 05/31/19 08:30 Dose: 40 mg Documented by: Sennosides (Senokot) 17.2 mg PO HS [facility] Stop: 06/29/19 20:59 Last Admin: 05/30/19 20:02 Dose: 17.2 mg Documented by:
[2019-05-31] MEDS: SENNA 8.6 MG TAB PO SCH (20:37)
[2019-06-01] MEDS: ACETAMINOPHEN 500 MG TAB PO SCH ×3 (06:19→21:40)
--- NOTE | 2019-06-01 07:23 | Orthopedic Progress Note ---
Date of Service June 01, 2019 Assessment & Plan (1) S/P total knee arthroplasty: POD #2, Left TKA PT/ OT DVT proph- Josh D/C planning- Accepted to [facility] for Sunday placement. As per medicine. Supervising Physician Co-Signing Physician Notes The patient was seen and examined, agree with above assessment plan. Subjective POD #2, Doing well. Denies SOB, CP, N/V. Pain controlled well. Did well in PT. Results & Data Vital Signs (Past 12 Hours) Vital Signs Temp Pulse Resp BP Pulse Ox 05/31/19 23:25 36.4 C L 81 16 121/77 97
[2019-06-01] MEDS: allopurinoL 300 MG TAB PO SCH (08:15)
[2019-06-01] MEDS: FUROSEMIDE 20 MG TAB PO SCH (08:15)
[2019-06-01] MEDS: FERROUS GLUCONATE 324 MG TAB PO SCH ×2 (08:16→17:43)
[2019-06-01] MEDS: APIXABAN 5 MG TABLET PO SCH ×2 (08:16→21:40)
[2019-06-01] MEDS: MULTIVITAMIN TAB PO SCH (08:16)
[2019-06-01] MEDS: PANTOprazole 40 MG TAB PO SCH ×2 (08:16→21:40)
[2019-06-01] MEDS: DOCUSATE SODIUM 100 MG CAP PO SCH ×2 (08:16→21:40)
--- NOTE | 2019-06-01 12:09 | Hospitalist Progress Note ---
Date of Service June 01, 2019 Assessment & Plan (1) Postoperative state: Postop day 2 status post left TKA by Dr. Perez (2) S/P total knee arthroplasty: Postop day 2 status post left TKA by Dr. Perez -pain management per ortho -wound management per ortho -PT/OT as appropriate -DVT prophylaxis per ortho -incentive spirometry -monitor H&H for acute blood loss anemia (3) Chronic atrial fibrillation: Rate is controlled, patient has started Eliquis twice daily. (4) CAD (coronary artery disease): Chronic, stable status post stent in 2005. Continue medical management. Patient has an allergy to statins. (5) Hypertension: At goal. Cont lisinopril and furosemide per home regimen. (6) CKD (chronic kidney disease) stage 3, GFR 30-59 ml/min: Chronic, stable, at baseline. Avoid nephrotoxic substances as able. (7) GERD (gastroesophageal reflux disease): -Continue PPI per home regimen (8) Gout: Continue allopurinol per home regimen. (9) DVT prophylaxis: Eliquis Full code Disposition-Per PT/OT recommendations. Thank you for this consultation. Denise Mendez DO [facility] Hospitalist Subjective Feeling well and denying any acute issues today. Pain appears to be well controlled on current regimen. Tolerating PO. Afebrile. Review of Systems Review of Systems: All systems reviewed & are unremarkable except as noted in HPI & below Physical Exam Physical Exam: CONSTITUTIONAL: WNWD, vitals as above, generally well- appearing EYES: normal conjunctivae, no scleral icterus ENT: MMM RESPIRATORY: clear to auscultation bilaterally, no crackles, rales or wheezes, normal respiratory effort CARDIOVASCULAR: regular rate and rhythm, S1 and 2 heard without murmurs, gallops or rubs, no JVD, no peripheral edema GASTROINTESTINAL: soft, nontender, nondistended MUSCULOSKELETAL: Limited movement of left knee. Postoperative wound present on anterior left knee with clean surgical dressing in place. No surrounding erythe ma. SKIN: warm and dry, surgical incision on left knee. NEUROLOGIC: CN II through XII grossly intact, normal cognition, normal speech, no gross focal deficits. PSYCHIATRIC: alert cooperative and oriented to person Results & Data Vital Signs (Past 12 Hours) Vital Signs Temp Pulse Resp BP Pulse Ox 06/01/19 07:21 36.3 C L 87 16 133/79 95 Medications Administered Current Inpatient Medications Acetaminophen (Tylenol) 1,000 mg PO Q8 [facility] Stop: 06/29/19 13:59 Last Admin: 06/01/19 06:19 Dose: 1,000 mg Documented by: Allopurinol (Zyloprim) 300 mg PO QAM [facility] Stop: 06/30/19 08:59 Last Admin: 06/01/19 08:15 Dose: 300 mg Documented by: Apixaban (Eliquis) 5 mg PO BID [facility] Stop: 06/30/19 08:59 Last Admin: 06/01/19 08:16 Dose: 5 mg Documented by: Bisacodyl (Dulcolax) 10 mg [place] DAILY PRN PRN Reason: Constipation Stop: 06/29/19 10:39 Docusate Sodium (Colace) 100 mg PO BID [facility] Stop: 06/29/19 20:59 Last Admin: 06/01/19 08:16 Dose: Not Given Documented by: Ferrous Gluconate (Ferrous Gluconate) 324 mg PO BIDM [facility] Stop: 06/29/19 16:59 Last Admin: 06/01/19 08:16 Dose: 324 mg Documented by: Furosemide (Lasix) 20 mg PO [facility] Stop: 07/01/19 08:59 Last Admin: 06/01/19 08:15 Dose: 20 mg Documented by: Hydromorphone HCl (Dilaudid) 0.5 mg IV Q4H PRN PRN Reason: Pain Stop: 06/13/19 10:39 Lisinopril (Zestril) 2.5 mg PO [facility] Stop: 06/30/19 08:59 Magnesium Hydroxide (Milk Of Magnesia) 30 ml PO Q6H PRN PRN Reason: Constipation Stop: 06/29/19 10:39 Multivitamins (Multivitamin Tab) 1 tab PO [facility] Stop: 06/30/19 08:59 Last Admin: 06/01/19 08:16 Dose: 1 tab Documented by: Naloxone HCl (Narcan) 0.1 mg IV Q5M PRN PRN Reason: Oversedation/Resp Depression Stop: 06/29/19 10:39 Ondansetron HCl (Zofran) 4 mg IV Q6H PRN PRN Reason: Nausea And Vomiting Stop: 06/29/19 10:39 Oxycodone HCl (Roxicodone Immediate Rel) 5 - 10 mg PO Q4H PRN PRN Reason: Pain Stop: 06/13/19 10:39 Last Admin: 06/01/19 11:17 Dose: 5 mg Documented by: Pantoprazole Sodium (Protonix) 40 mg PO BID [facility] Stop: 06/29/19 20:59 Last Admin: 06/01/19 08:16 Dose: 40 mg Documented by: Sennosides (Senokot) 17.2 mg PO HS [facility] Stop: 06/29/19 20:59 Last Admin: 05/31/19 20:37 Dose: 17.2 mg Documented by:
[2019-06-01] MEDS: SENNA 8.6 MG TAB PO SCH (21:40)
[2019-06-02 05:26] LABS: BUN Creatinine Ratio 17.1 (10-20); Calcium 8.2 mg/dl (8.5-10.1); Creatinine Clr Calc Pharmacy 56.3 ml/min; Est GFR (African American) 74.7; Est GFR (Non-African American) 64.5; Potassium 3.6 mmol/L (3.5-5.1)
[2019-06-02 05:41] LABS: Hemoglobin 9.5 g/dL (14.0-18.0); Mean Corpuscular Hemoglobin 30.4 pg (25-34); Mean Corpuscular Hgb Conc 32.8 g/dL (32-36); Mean Corpuscular Volume 92.9 fL (80-100); Mean Platelet Volume 11.6 fL (7.4-10.4); Platelet Count 149 K/uL (130-400); RDW Coefficient of Variation 15.2 % (11.5-14.5); RDW Standard Deviation 50.6 fL (36.4-46.3); Red Blood Count 3.12 M/uL (4.7-6.1); White Blood Count 8.88 K/uL (4.8-10.8)
[2019-06-02] MEDS: ACETAMINOPHEN 500 MG TAB PO SCH (06:30)
--- NOTE | 2019-06-02 07:09 | Orthopedic Progress Note ---
Date of Service June 02, 2019 Assessment & Plan (1) S/P total knee arthroplasty: POD #3, Left TKA PT/ OT DVT proph- Josh D/C planning- Accepted to [facility] for today. As per medicine. Subjective POD #3 Feeling well and denying any acute issues today. Pain appears to be well controlled on current regimen. Tolerating PO. Afebrile. Physical Exam Physical Exam: Left knee silverlon dressing c/d/i, no drainage. Toes/ ankle mobile No calf tenderness. A&Ox3. Results & Data Vital Signs (Past 12 Hours) Vital Signs Temp Pulse Resp BP Pulse Ox 06/01/19 23:15 36.7 C 104 H 18 120/73 95
--- NOTE | 2019-06-02 08:19 | Anesthesiology Progress Note ---
Date of Service June 02, 2019 Anesthesia Post Procedure Vital Signs Vital Signs: Temp Pulse Pulse Pulse Resp BP BP 06/02/19 07:20 36.8 C 88 20 124/78 06/01/19 23:15 36.7 C 104 H 18 120/73 06/01/19 15:01 36.8 C 86 16 114/74 06/01/19 14:00 36.5 C Pulse Ox 06/02/19 07:20 94 06/01/19 23:15 95 06/01/19 15:01 95 06/01/19 14:00 Pain Intensity Left Knee: Pain Intensity: 5 Notes Mental Status: alert / awake / arousable Patient Amnestic to Procedure: Yes Nausea / Vomiting: adequately controlled Pain: adequately controlled Airway Patency, RR, SpO2: stable & adequate BP & HR: stable & adequate Hydration State: stable & adequate Neuraxial Anesthesia: was administered and sensory block resolved Anesthetic Complications: no major complications apparent
[2019-06-02] MEDS: FUROSEMIDE 20 MG TAB PO SCH (08:56)
[2019-06-02] MEDS: allopurinoL 300 MG TAB PO SCH (08:57)
[2019-06-02] MEDS: MULTIVITAMIN TAB PO SCH (08:57)
[2019-06-02] MEDS: DOCUSATE SODIUM 100 MG CAP PO SCH (08:57)
[2019-06-02] MEDS: FERROUS GLUCONATE 324 MG TAB PO SCH (08:57)
[2019-06-02] MEDS: APIXABAN 5 MG TABLET PO SCH (08:57)
[2019-06-02] MEDS: PANTOprazole 40 MG TAB PO SCH (08:57)
--- NOTE | 2019-06-02 10:27 | Hospitalist Progress Note ---
Date of Service June 02, 2019 Assessment & Plan (1) Postoperative state: Postop day 3 status post left TKA by Dr. Perez (2) S/P total knee arthroplasty: POD #[address] Perez pain/wound management as per ortho therapy and activity as directed by ortho DVT prophylaxis per ortho incentive spirometry H/H 9.5 and 29.0, EBL from surgery 5mL ; Knee hemovac 1380ml -acute blood loss anemia 2/2 to post operative state hemodynamically stable (3) Chronic atrial fibrillation: Rate is controlled, patient has started Eliquis twice daily monitor h&H (4) CAD (coronary artery disease): Chronic, stable status post stent in 2005. Continue medical management NATE and eliquis Patient has an allergy to statins. (5) Hypertension: blood pressure controlled, control lasix and lisinopril (6) CKD (chronic kidney disease) stage 3, GFR 30-59 ml/min: Chronic, stable, at baseline. Avoid nephrotoxic substances as able. (7) GERD (gastroesophageal reflux disease): Continue PPI per home regimen (8) Gout: Continue allopurinol per home regimen. (9) DVT prophylaxis: Eliquis Full code Disposition-to be discharge to [facility] rehab today per case management Thank you for this consultation. We will follow the patient with you during their hospital stay. You can reach a member of the [facility] Hospitalist Team 04/12 via pager @ [phone]. Pt was seen and examined in collaboration with Dr. Mendez, please see addendum Subjective Pt seen and examined in room 314. Follow up L TKA. Pt lying in bed w/o concerns. Denies f/c/s, chest pain, sob, n/v/d, abdominal pain. +BM and passing flatus. Pain 5/10. Already worked with PT this morning. To be discharged to rehab today. Overall good appetite. Review of Systems Review of Systems: All systems reviewed & are unremarkable except as noted in HPI & below Physical Exam Physical Exam: Gen: WD/WN, M, elderly, lying in bed, pleasant, NAD, A&O x3 HEENT: Normocephalic, atraumatic, conjunctivae moist, sclerae anicteric, mucous membranes moist. Lung: Clear to Auscultation bilaterally, no wheezes/rales/rhonchi Heart: IRR/IRR, no murmurs, rubs, or gallops Abdomen: Soft, NT, ND +BS x 4 Extremities: No edema, SCD/TEDS in place, L TKA dressing CDI, NVI distally, b/l pedal pulse +1 Skin: Warm, no rash, negative turgor. Results & Data Vital Signs (Past 12 Hours) Vital Signs Temp Pulse Pulse Resp BP Pulse Ox 06/02/19 09:58 36.8 C 88 20 124/78 94 06/02/19 07:20 36.8 C 88 20 124/78 94 06/01/19 23:15 36.7 C 104 H 18 120/73 95 Laboratory Results Short CBC 06/02/19 Range/Units 04:50 WBC 8.88 (4.8-10.8) K/uL Hgb 9.5 L (14.0-18.0) g/dL Hct 29.0 L (42-52) % Plt Count 149 (130-400) K/uL BMP 06/02/19 04:50 Sodium 138 Potassium 3.6 Chloride 104 Carbon Dioxide 31 BUN 19 H Creatinine 1.08 Glucose 106 H Calcium 8.2 L Medications Administered Acetaminophen (Tylenol) 1,000 mg PO Q8 [facility] Stop: 06/29/19 13:59 Last Admin: 06/02/19 06:30 Dose: 1,000 mg Documented by: [id number] Admin: 06/01/19 21:40 Dose: 1,000 mg Documented by: [id number] Admin: 06/01/19 14:00 Dose: 1,000 mg Documented by: [id number] Admin: 06/01/19 06:19 Dose: 1,000 mg Documented by: [id number] Admin: 05/31/19 22:48 Dose: 1,000 mg Documented by: [id number] Admin: 05/31/19 14:38 Dose: 1,000 mg Documented by: [id number] Admin: 05/31/19 05:33 Dose: 1,000 mg Documented by: [id number] Admin: 05/30/19 22:03 Dose: 1,000 mg Documented by: [id number] Admin: 05/30/19 13:09 Dose: 1,000 mg Documented by: [id number] Allopurinol (Zyloprim) 300 mg PO QAM [facility] Stop: 06/30/19 08:59 Last Admin: 06/02/19 08:57 Dose: 300 mg Documented by: [id number] Admin: 06/01/19 08:15 Dose: 300 mg Documented by: [id number] Admin: 05/31/19 08:30 Dose: 300 mg Documented by: [id number] Apixaban (Eliquis) 5 mg PO BID [facility] Stop: 06/30/19 08:59 Last Admin: 06/02/19 08:57 Dose: 5 mg Documented by: [id number] Admin: 06/01/19 21:40 Dose: 5 mg Documented by: [id number] Admin: 06/01/19 08:16 Dose: 5 mg Documented by: [id number] Admin: 05/31/19 20:37 Dose: 5 mg Documented by: [id number] Admin: 05/31/19 08:30 Dose: 5 mg Documented by: [id number] Docusate Sodium (Colace) 100 mg PO BID [facility] Stop: 06/29/19 20:59 Last Admin: 06/02/19 08:57 Dose: Not Given Documented by: [id number] Admin: 06/01/19 21:40 Dose: 100 mg Documented by: [id number] Admin: 06/01/19 08:16 Dose: Not Given Documented by: [id number] Admin: 05/31/19 20:38 Dose: 100 mg Documented by: [id number] Admin: 05/31/19 08:30 Dose: 100 mg Documented by: [id number] Admin: 05/30/19 20:01 Dose: 100 mg Documented by: [id number] Ferrous Gluconate (Ferrous Gluconate) 324 mg PO BIDM [facility] Stop: 06/29/19 16:59 Last Admin: 06/02/19 08:57 Dose: 324 mg Documented by: [id number] Admin: 06/01/19 17:43 Dose: 324 mg Documented by: [id number] Admin: 06/01/19 08:16 Dose: 324 mg Documented by: [id number] Admin: 05/31/19 17:41 Dose: 324 mg Documented by: [id number] Admin: 05/31/19 08:30 Dose: 324 mg Documented by: [id number] Admin: 05/30/19 17:52 Dose: 324 mg Documented by: [id number] Furosemide (Lasix) 20 mg PO QAM [facility] Stop: 07/01/19 08:59 Last Admin: 06/02/19 08:56 Dose: 20 mg Documented by: [id number] Admin: 06/01/19 08:15 Dose: 20 mg Documented by: [id number] Multivitamins (Multivitamin Tab) 1 tab PO QAM [facility] Stop: 06/30/19 08:59 Last Admin: 06/02/19 08:57 Dose: 1 tab Documented by: [id number] Admin: 06/01/19 08:16 Dose: 1 tab Documented by: [id number] Admin: 05/31/19 08:30 Dose: 1 tab Documented by: [id number] Oxycodone HCl (Roxicodone Immediate Rel) 5 - 10 mg PO Q4H PRN PRN Reason: Pain Stop: 06/13/19 10:39 Last Admin: 06/01/19 11:17 Dose: 5 mg Documented by: [id number] Pantoprazole Sodium (Protonix) 40 mg PO BID [facility] Stop: 06/29/19 20:59 Last Admin: 06/02/19 08:57 Dose: 40 mg Documented by: [id number] Admin: 06/01/19 21:40 Dose: 40 mg Documented by: [id number] Admin: 06/01/19 08:16 Dose: 40 mg Documented by: [id number] Admin: 05/31/19 20:37 Dose: 40 mg Documented by: [id number] Admin: 05/31/19 08:30 Dose: 40 mg Documented by: [id number] Admin: 05/30/19 20:01 Dose: 40 mg Documented by: [id number] Sennosides (Senokot) 17.2 mg PO HS [facility] Stop: 06/29/19 20:59 Last Admin: 06/01/19 21:40 Dose: Not Given Documented by: [id number] Admin: 05/31/19 20:37 Dose: 17.2 mg Documented by: [id number] Admin: 05/30/19 20:02 Dose: 17.2 mg Documented by: [id number] Discontinued Medications Acetaminophen (Tylenol) 1,000 mg PO PREOP [facility] Stop: 05/30/19 18:00 Last Admin: 05/30/19 05:58 Dose: 1,000 mg Documented by: [id number] Bacitracin (Bacitracin) Confirm Administered Dose 50,000 units .ROUTE .STK-MED ONE Stop: 05/30/19 07:14 Last Admin: 05/30/19 09:07 Dose: 50,000 units Documented by: [id number] Celecoxib (Celebrex) 200 mg PO PREOP [facility] Stop: 05/30/19 18:00 Last Admin: 05/30/19 05:58 Dose: 200 mg Documented by: [id number] Dexamethasone (Decadron) 8 mg PO PREOP [facility] Stop: 05/30/19 18:00 Last Admin: 05/30/19 05:58 Dose: 8 mg Documented by: [id number] Famotidine (Pepcid) 20 mg PO PREOP [facility] Stop: 05/30/19 18:00 Last Admin: 05/30/19 05:58 Dose: 20 mg Documented by: [id number] Gabapentin (Neurontin) 300 mg PO PREOP [facility] Stop: 05/30/19 18:00 Last Admin: 05/30/19 05:58 Dose: 300 mg Documented by: [id number] Lactated Ringer's (Lr) 1,000 mls @ 15 mls/hr IV .Q24H [facility] Stop: 05/31/19 05:59 Last Infusion: 05/30/19 07:31 Dose: 0 mls/hr Documented by: [id number] Admin: 05/30/19 05:52 Dose: 15 mls/hr Documented by: [id number] Cefazolin Sodium (Ancef 2000mg) 2,000 mg in 15 mls @ 3.75 mls/min IV PREOP ART; Protocol Stop: 05/30/19 18:00 Last Admin: 05/30/19 07:37 Dose: 3.75 mls/min Documented by: [id number] Ropivacaine 150 mg/Bupivacaine HCl 30 ml/Epinephrine HCl 0.15 mg/Ketorolac Tromethamine 30 mg/Dexamethasone 4 mg/ Ketamine HCl 10 mg/ Clonidine HCl 100 mcg/ Sodium Chloride 93.35 mls @ 0 mls/hr INSTIL PREOP ART Stop: 05/30/19 06:01 Last Admin: 05/30/19 08:40 Dose: 93.35 mls/hr Documented by: [id number] Sodium Chloride (Nss 1000ml) 1,000 mls @ 100 mls/hr IV .Q10H [facility] Stop: 05/31/19 10:59 Last Infusion: 05/31/19 05:35 Dose: 0 mls/hr Documented by: [id number] Admin: 05/30/19 20:04 Dose: 100 mls/hr Documented by: [id number] Infusion: 05/30/19 20:04 Dose: 100 mls/hr Documented by: [id number] Admin: 05/30/19 10:30 Dose: 100 mls/hr Documented by: [id number] Cefazolin Sodium (Ancef 2000mg) 2,000 mg in 15 mls @ 3.75 mls/min IV Q8H ART; Protocol Stop: 05/31/19 00:03 Last Admin: 05/31/19 00:07 Dose: 3.75 mls/min Documented by: [id number] Admin: 05/30/19 15:17 Dose: 3.75 mls/min Documented by: [id number] Metoclopramide HCl (Reglan) 10 mg PO PREOP [facility] Stop: 05/30/19 18:00 Last Admin: 05/30/19 05:58 Dose: 10 mg Documented by: [id number] Miscellaneous (Ortho Joint Anesthetic) Confirm Administered Dose 1 ea .ROUTE .STK-MED ONE Stop: 05/30/19 07:14 Last Admin: 05/30/19 08:16 Dose: Not Given Documented by: [id number]
== END 2019-06-02 12:00 | DRG 470 ==
LOC: ASU 04:45 → 3E 09:53